=== PATIENT | male | born 1950 | race Asian ===

== ENCOUNTER 2023-08-11 14:30 | Inpatient (IN) | payer MEDICARE, OTHER ==
[~2023-08-11] VITALS: Ht 165.1 cm; Wt 70.3 kg
[2023-08-11 15:24] LABS: BASOPHILS # (AUTO) 0.1 K/uL (0.0-0.2); BASOPHILS % (AUTO) 0.6 % (0.0-2.0); EOSINOPHILS # (AUTO) 0.1 K/uL (0.0-0.7); EOSINOPHILS % (AUTO) 1.1 % (0.0-6.0); HEMATOCRIT 52 % (39-51); HEMOGLOBIN 16.8 g/dL (13.5-17.5); LYMPHOCYTES # (AUTO) 1.6 K/uL (0.8-4.8); MEAN CORPUSCULAR HEMOGLOBIN 27 PG (26.0-33.0); MEAN CORPUSCULAR HGB CONC 32 g/dl (31.0-36.0); MEAN CORPUSCULAR VOLUME 84 fL (80-96); MONOCYTES # (AUTO) 0.6 K/uL (0.1-1.30); MONOCYTES % (AUTO) 6.4 % (2.0-12.0); NEUTROPHILS # (AUTO) 7.1 K/uL (1.8-8.9); NEUTROPHILS % (AUTO) 74.9 % (43.0-81.0); PLATELET COUNT (AUTO) 176 K/uL (150-450); RED CELL DISTRIBUTION WIDTH 14.9 % (11.5-15.0); WHITE BLOOD COUNT (AUTO) 9.4 K/uL (4.3-11.0)
[2023-08-11] MEDS ORDERED: LEVE750T4 PO (15:29)
[2023-08-11] MEDS ORDERED: POLY17PO4 PO (15:29)
[2023-08-11] MEDS ORDERED: LISI-768 PO (15:29)
[2023-08-11] MEDS ORDERED: SITA100T PO (15:29)
[2023-08-11] MEDS ORDERED: AMIN30LI2 PO (15:29)
[2023-08-11] MEDS ORDERED: NA P133E RC (15:29)
[2023-08-11] MEDS ORDERED: ASPI-1420 PO (15:29)
[2023-08-11] MEDS ORDERED: ASCO-352 PO (15:29)
[2023-08-11] MEDS ORDERED: LORA10TA7 PO (15:29)
[2023-08-11] MEDS ORDERED: CHOL500062 PO (15:29)
[2023-08-11] MEDS ORDERED: METO25TA6 PO (15:29)
[2023-08-11] MEDS ORDERED: ACET-73 PO (15:29)
[2023-08-11] MEDS ORDERED: MELA3TAB41 PO (15:29)
[2023-08-11] MEDS ORDERED: BISA10SU11 RC (15:29)
[2023-08-11] MEDS ORDERED: ROSU10TA2 PO (15:29)
[2023-08-11] MEDS ORDERED: INSU100V30 SQ (15:29)
[2023-08-11] MEDS ORDERED: INSU100I30 SQ (15:29)
[2023-08-11] MEDS ORDERED: ESCI10TA PO (15:29)
[2023-08-11] MEDS ORDERED: ACET-2030 PO (15:29)
[2023-08-11] MEDS ORDERED: ALEN70TA3 PO (15:29)
[2023-08-11] MEDS ORDERED: MAGN400O6 PO (15:29)
[2023-08-11] MEDS ORDERED: ACET325T53 PO (15:29)
[2023-08-11] MEDS ORDERED: SENN8.6T19 PO (15:29)
[2023-08-11 15:41] LABS: CALCIUM, SERUM 8.6 mg/dL (8.5-10.1); CARBON DIOXIDE 22 mmol/L (21-32); CHLORIDE 104 mmol/L (98-107); GLUCOSE 120 mg/dL (74-106); POTASSIUM 4.8 mmol/L (3.5-5.1); SODIUM SERUM 137 mmol/L (136-145); UREA NITROGEN, BLOOD 14 mg/dL (7-18)
[2023-08-11 15:47] LABS: ALANINE AMINOTRANSFERASE 57 U/L (12-78); ALCOHOL, BLOOD < 3 mg/dL (0-10); ALKALINE PHOSPHATASE 72 U/L (46-116); ASPARTATE AMINOTRANSFERASE 38 U/L (15-37); BILIRUBIN,DIRECT 0.1 mg/dL (0.0-0.2); BILIRUBIN,TOTAL 0.5 mg/dL (0.2-1.0)
[2023-08-11 15:48] LABS: APPEARANCE,URINE Clear (CLEAR); BILIRUBIN,URINE Negative (NEGATIVE); BLOOD, URINE Trace-intact Ery/uL (NEGATIVE); COLOR,URINE YELLOW (YELLOW); KETONES,URINE Negative (NEGATIVE); LEUKOCYTE ESTERASE ,URINE Negative (NEGATIVE); NITRITE, URINE Negative (NEGATIVE); PROTEIN,URINE >=300 mg/dl (NEGATIVE); UGLUCOSE 100 MG/DL mg/dL (NEGATIVE); UROBILINOGEN,URINE 0.2 EU/dL (0.2)
[2023-08-11 15:52] LABS: ACETAMINOPHEN 0 ug/ml (10-30); SALICYLATE < 0.2 mg/dL (2.8-20.0)
[2023-08-11 15:58] LABS: AMPHETAMINE, URINE NEGATIVE (NEGATIVE); BARBITURATE, URINE NEGATIVE (NEGATIVE); BENZODIAZEPINE, URINE NEGATIVE (NEGATIVE); CANNABINOID, URINE NEGATIVE (NEGATIVE); COCCAINE, URINE NEGATIVE (NEGATIVE); OPIATE, URINE NEGATIVE (NEGATIVE); PHENCYCLIDINE SCREEN,URINE NEGATIVE (NEGATIVE)
[2023-08-11] MEDS ORDERED: OLANZAPINE 10 MG VIAL IM ONE (16:38)
[2023-08-11 16:43] LABS: ADD URINE CULTURE NO; BACTERIA,URINE Few /HPF (None Seen); SQUAMOUS EPITHELIAL CELL,UR Few /HPF (None Seen); WBC,URINE 0-2 /HPF (0-3)
[2023-08-11] MEDS: OLANZAPINE 10 MG VIAL IM ONE (16:49)
[2023-08-11 17:21] LABS: TOTAL PROTEIN, SERUM 8.1 g/dL (6.4-8.2)
[2023-08-11 20:00] VITALS: BP 147/79; TEMP 97.9; O2SAT 96
[2023-08-11] MEDS ORDERED: TEMAZEPAM 7.5 MG CAPSULE PO PRN (20:30)
[2023-08-11] MEDS ORDERED: MAGNESIUM HYDROXIDE 30 ML UDC PO PRN ×2 (20:30)
[2023-08-11] MEDS ORDERED: ALENDRONATE 70 MG TABLET PO SCH (20:30)
[2023-08-11] MEDS ORDERED: MAG HYDROX/AL HYDROX/SIMETH 30 ML UDC PO PRN (20:30)
[2023-08-11] MEDS ORDERED: clonazePAM 0.5 MG TABLET PO PRN (20:30)
[2023-08-11] MEDS ORDERED: ACETAMINOPHEN ES 500 MG TABLET PO PRN ×2 (20:30)
[2023-08-11] MEDS ORDERED: ACETAMINOPHEN 325 MG TABLET PO PRN ×2 (20:30)
[2023-08-11] MEDS ORDERED: BISACODYL SUPP (10 MG) 10 MG/SUPP.RECT SUPP.RECT RC PRN (20:30)
[2023-08-11] MEDS ORDERED: DEXTROSE 50%-WATER 50 ML DISP.SYRIN IV PRN (20:30)
[2023-08-11] MEDS: BLOOD SUGAR DIAGNOSTIC 1 EACH STRIP IN ONE (20:41)
[2023-08-11] MEDS ORDERED: Medication Not On Formulary EA (Melatonin 3 MG) PO SCH (22:00)
[2023-08-11] MEDS: BLOOD SUGAR DIAGNOSTIC 1 EACH STRIP IN SCH (22:03)
[2023-08-11] MEDS: ATORVASTATIN 40 MG TABLET PO SCH (22:03)
[2023-08-12 00:54] VITALS: BP 147/79; TEMP 97.9; O2SAT 96
[2023-08-12] MEDS ORDERED: ALENDRONATE 70 MG TABLET PO SCH (07:00)
[2023-08-12 08:00] VITALS: BP 140/85; TEMP 98; O2SAT 100
[2023-08-12] MEDS ORDERED: LINAGLIPTIN 5 MG TABLET PO SCH (09:00)
[2023-08-12] MEDS: LEVETIRACETAM (250 MG) 250 MG TABLET PO SCH (09:20)
[2023-08-12] MEDS: POLYETHYLENE GLYCOL 3350 17 GM POWD.PACK PO SCH (09:20)
[2023-08-12] MEDS: ASCORBIC ACID 500 MG TABLET PO SCH (09:20)
[2023-08-12] MEDS: ASPIRIN EC 81 MG TABLET.DR PO SCH (09:20)
[2023-08-12] MEDS: SENNOSIDES 8.6 MG TABLET PO SCH (09:20)
[2023-08-12] MEDS: ESCITALOPRAM OXALATE (10 MG) 10 MG TABLET PO SCH (09:21)
[2023-08-12] MEDS: CHOLECALCIFEROL 1,000 UNIT TABLET (VIT D3) PO SCH (09:21)
[2023-08-12] MEDS: LISINOPRIL (5MG) 5 MG TABLET PO SCH (09:21)
[2023-08-12] MEDS: risperiDONE 1 MG TABLET PO SCH (09:22)
[2023-08-12] MEDS: METOPROLOL TARTRATE 25 MG TABLET PO SCH (09:22)
[2023-08-12] MEDS: PROSOURCE / PROSTAT (PYXIS) 30 ML UDC PO SCH (09:23)
[2023-08-12] MEDS: LORATADINE 10 MG TABLET PO SCH (09:26)
[2023-08-12] MEDS: INSULIN REGULAR, HUMAN 100 UNIT/ML 3 ML VIAL SQ PRN (11:27)
[2023-08-12 16:00] VITALS: BP 90/60; TEMP 97.9; O2SAT 95
[2023-08-12 16:16] LABS: CHOLESTEROL 101 mg/dL (<200); HDL CHOLESTEROL 46 mg/dL (40-60); LDL 40 mg/dL (0-99); TRIGLYCERIDES 138 mg/dL (30-150)
[2023-08-12 16:42] LABS: ALANINE AMINOTRANSFERASE 46 U/L (12-78); ALKALINE PHOSPHATASE 75 U/L (46-116); ASPARTATE AMINOTRANSFERASE 28 U/L (15-37); BILIRUBIN,TOTAL 0.4 mg/dL (0.2-1.0); CALCIUM, SERUM 9.2 mg/dL (8.5-10.1); CARBON DIOXIDE 27 mmol/L (21-32); CHLORIDE 99 mmol/L (98-107); CREATININE 1.5 mg/dL (0.6-1.3); GLUCOSE 185 mg/dL (74-106); POTASSIUM 4.3 mmol/L (3.5-5.1); SODIUM SERUM 136 mmol/L (136-145); TOTAL PROTEIN, SERUM 7.7 g/dL (6.4-8.2); UREA NITROGEN, BLOOD 22 mg/dL (7-18)
[2023-08-12 20:00] VITALS: BP 105/63; TEMP 97.9; O2SAT 96
[2023-08-13] MEDS: ALENDRONATE 70 MG TABLET PO SCH (06:40)
[2023-08-13 08:00] VITALS: BP 140/68; TEMP 97.9; O2SAT 98
[2023-08-13] MEDS: LINAGLIPTIN 5 MG TABLET PO SCH (09:21)
[2023-08-13 16:00] VITALS: BP 97/60; TEMP 97.9; O2SAT 94
[2023-08-13 19:23] LABS: CREATININE, URINE 50.1 MG/DL (30.0-125.0); URINE TOTAL PROTEIN 48.3 mg/dL (0-11.9)
[2023-08-13 20:00] VITALS: BP 108/62; TEMP 98.1; O2SAT 96
[2023-08-14 06:40] LABS: BASOPHILS # (AUTO) 0.1 K/uL (0.0-0.2); BASOPHILS % (AUTO) 0.8 % (0.0-2.0); EOSINOPHILS # (AUTO) 0.2 K/uL (0.0-0.7); EOSINOPHILS % (AUTO) 2.6 % (0.0-6.0); HEMATOCRIT 47 % (39-51); HEMOGLOBIN 15.5 g/dL (13.5-17.5); LYMPHOCYTES # (AUTO) 1.8 K/uL (0.8-4.8); LYMPHOCYTES % (AUTO) 24.7 % (20.0-44.0); MEAN CORPUSCULAR HEMOGLOBIN 28 PG (26.0-33.0); MEAN CORPUSCULAR HGB CONC 33 g/dl (31.0-36.0); MEAN CORPUSCULAR VOLUME 84 fL (80-96); MONOCYTES # (AUTO) 0.5 K/uL (0.1-1.30); MONOCYTES % (AUTO) 6.9 % (2.0-12.0); NEUTROPHILS # (AUTO) 4.6 K/uL (1.8-8.9); PLATELET COUNT (AUTO) 160 K/uL (150-450); RED BLOOD CELL COUNT(AUTO) 5.61 MIL/uL (4.5-6.0); RED CELL DISTRIBUTION WIDTH 14.8 % (11.5-15.0); WHITE BLOOD COUNT (AUTO) 7.1 K/uL (4.3-11.0)
[2023-08-14 07:22] LABS: ALBUMIN 2.7 g/dL (3.4-5.0); BILIRUBIN,TOTAL 0.5 mg/dL (0.2-1.0); CALCIUM, SERUM 9.1 mg/dL (8.5-10.1); CREATININE 1.3 mg/dL (0.6-1.3); MAGNESIUM 1.9 mg/dL (1.8-2.4); PHOSPHORUS 4.2 mg/dL (2.5-4.9); POTASSIUM 4.5 mmol/L (3.5-5.1); TOTAL PROTEIN, SERUM 6.9 g/dL (6.4-8.2)
[2023-08-14 09:28] VITALS: BP 134/75; TEMP 97.7
[2023-08-14 16:59] VITALS: BP 143/67; TEMP 98.1; O2SAT 95
[2023-08-14 20:00] VITALS: BP 130/51; TEMP 98.2; O2SAT 99
[2023-08-14 22:02] VITALS: BP 123/68; TEMP 98; O2SAT 100
[2023-08-15 08:00] VITALS: BP 127/69; TEMP 98; O2SAT 98
[2023-08-15 16:00] VITALS: BP 144/75; TEMP 98; O2SAT 95
[2023-08-15 20:46] VITALS: BP 114/58; TEMP 98; O2SAT 93
[2023-08-16 08:00] VITALS: BP 146/68; TEMP 98; O2SAT 98
[2023-08-16 16:00] VITALS: BP 105/53; TEMP 98; O2SAT 96
[2023-08-16 20:45] VITALS: BP 120/60; TEMP 98; O2SAT 100
[2023-08-17 07:09] LABS: *SPE A/G RATIO 0.9 (0.7-1.7); *SPE ALPHA-1-GLOBULIN 0.2 g/dL (0.0-0.4); *SPE ALPHA-2-GLOBULIN 0.8 g/dL (0.4-1.0); *SPE BETA GLOBULIN 1.2 g/dL (0.7-1.3); *SPE GLOBULIN, TOTAL 3.3 g/dL (2.2-3.9); *SPE M-SPIKE Not Observed g/dL (Not Observed); *SPE PROTEIN TOTAL 6.3 g/dL (6.0-8.5); *SPEGAMMA GLOBULIN 1.1 g/dL (0.4-1.8)
[2023-08-17 08:00] VITALS: BP 131/60; TEMP 97.8; O2SAT 100
[2023-08-17 16:08] VITALS: BP 104/61; TEMP 98; O2SAT 100
[2023-08-17 18:53] VITALS: BP 158/76
[2023-08-17 20:45] VITALS: BP 123/68; TEMP 98.1; O2SAT 95
[2023-08-18 01:09] LABS: PTH, INTACT 13 pg/mL (15-65)
[2023-08-18 08:00] VITALS: BP 128/60; TEMP 97.9; O2SAT 96
[2023-08-18 16:00] VITALS: BP 149/76; TEMP 97.9; O2SAT 96
[2023-08-18 20:00] VITALS: BP 149/64; TEMP 97.3; O2SAT 97
[2023-08-19 08:00] VITALS: BP 90/50; TEMP 97.9; O2SAT 100
[2023-08-19 16:00] VITALS: BP 123/68; TEMP 98; O2SAT 99
[2023-08-19 20:00] VITALS: BP 128/65; TEMP 98.2; O2SAT 97
[2023-08-20 08:00] VITALS: BP 95/54; TEMP 98.1; O2SAT 95
[2023-08-20 16:00] VITALS: BP 135/67; TEMP 98.1; O2SAT 96
[2023-08-20 20:00] VITALS: BP 118/67; TEMP 98.3; O2SAT 99
[2023-08-21 08:00] VITALS: BP 153/63; TEMP 97.6; O2SAT 98
[2023-08-21 16:00] VITALS: BP 124/78; TEMP 98.1; O2SAT 99
[2023-08-21] MEDS: METFORMIN 500 MG TABLET PO SCH (16:57)
[2023-08-21 20:00] VITALS: BP 119/76; TEMP 98; O2SAT 98
[2023-08-22 08:00] VITALS: BP 106/63; TEMP 97.9; O2SAT 96
[2023-08-22 16:00] VITALS: BP 136/75; TEMP 98.6; O2SAT 95
[2023-08-22 20:21] VITALS: BP 111/58; TEMP 97.9; O2SAT 96
[2023-08-22] MEDS: ACETAMINOPHEN 325 MG TABLET PO PRN (21:40)
[2023-08-23 08:00] VITALS: BP 139/69; TEMP 97.9; O2SAT 97
[2023-08-23 16:00] VITALS: BP 106/56; TEMP 98.6; O2SAT 96
[2023-08-23] MEDS: METFORMIN 500 MG TABLET PO SCH (16:53)
[2023-08-23 20:26] VITALS: BP 99/62; TEMP 98.4; O2SAT 99
[2023-08-24 08:00] VITALS: BP 114/60; TEMP 97.7; O2SAT 97
[2023-08-24 16:05] VITALS: BP 132/72; TEMP 98; O2SAT 97
[2023-08-24 20:17] VITALS: BP 96/57; TEMP 98.8; O2SAT 96
[2023-08-25] MEDS ORDERED: LOPERAMIDE HCL (2 MG CAP) 2 MG CAPSULE PO PRN ×2
[2023-08-25 08:00] VITALS: BP 120/59; TEMP 98.6; O2SAT 96
[2023-08-25 08:20] VITALS: BP 120/59
== END 2023-08-25 13:56 | DRG 885 ==
LOC: ER 14:30 → GPS 19:44
PROVIDERS: ADMIT Psychiatry & Neurology Psychiatry
DX: F29 Unspecified psychosis not due to a substance or known physiological condition (principal); N17.9 Acute kidney failure, unspecified; E11.65 Type 2 diabetes mellitus with hyperglycemia; E44.0 Moderate protein-calorie malnutrition; F03.93 Unspecified dementia, unspecified severity, with mood disturbance; G40.909 Epilepsy, unspecified, not intractable, without status epilepticus; K59.00 Constipation, unspecified; E78.5 Hyperlipidemia, unspecified; I10 Essential (primary) hypertension; Z79.4 Long term (current) use of insulin; Z79.899 Other long term (current) drug therapy; F39 Unspecified mood [affective] disorder; F32.A Depression, unspecified; M89.8X9 Other specified disorders of bone, unspecified site; Z68.25 Body mass index [BMI] 25.0-25.9, adult; Z20.822 Contact with and (suspected) exposure to COVID-19
CPT/HCPCS: 36415; 80048-TC; 80053-TC; 80061-TC; 80076-TC; 81001; 82550-TC; 82570-TC; 82962-TC; 83735-TC; 83970; 84100-TC; 84155; 84165; 84300-TC; 85025-TC; 87081-TC; A6403; G0480; J1815; J3490